=== PATIENT | male | born 1955 | race Caucasian/White ===

== ENCOUNTER 2017-04-02 07:05 | Day surgery (SDC) | payer BC ==
[~2017-04-02 07:05] MED LIST: ASPIRIN EC81 MG PO; CPAP; CYMBALTA60 M1 PO; CYMBALTA60 MG PO; DILTIAZEM ER180 M2 PO; FLOMAX0.4 MG PO; FLONASE ALLERG9.9 ML; FLUTICASONE PRO16 GM NS; HYDROCODON-ACE1 EAC8 PO; MULTIVITAMIN1 TAB PO; MULTIVITAMINS1 EAC6 PO; NORCO 5/325 TAB1 TAB PO; TAMSULOSIN HCL0.4 M1 PO; TOPROL XL50 M1 PO; [UNRECOGNIZED DRUG - OTHER] PO
[2017-04-02] MEDS ORDERED: HYDROCODON-ACE1 EA16 PO (07:46)
[2017-04-02 07:54] LABS: URINE BILIRUBIN NEGATIVE (NEG); URINE BLOOD LARGE (NEG); URINE GLUCOSE (UA) NEGATIVE (NEG); URINE KETONE NEGATIVE (NEG); URINE LEUKOCYTE ESTERASE POSITIVE (NEG); URINE NITRITE NEGATIVE (NEG); URINE PROTEIN MODERATE (NEG)
[2017-04-02 07:55] LABS: URINE APPEARANCE HAZY; URINE COLOR YELLOW
[2017-04-02 08:05] LABS: URINE RBC 200-250 /[HPF] (0-5); URINE WBC 0-3 /[HPF] (0-5)
[2017-04-02 08:06] LABS: URINE BACTERIA 1+; URINE EPITHELIAL CELLS 0-1 /[HPF] (0-10)
[2017-04-02 08:06] LABS: INR 0.9 INR (0.9-1.1); PROTHROMBIN TIME 10.6 SECONDS (9.0-13.6)
[2017-04-03] MEDS ORDERED: PERCOCET 5-3251 EACH PO (10:25)
[2017-04-03] MEDS ORDERED: LEVAQUIN500 M1 PO (10:41)
[2017-04-29] MEDS ORDERED: HYDROCODON-ACE1 EA16 PO (15:23)
== END 2017-04-03 11:05 ==
LOC: SRG 07:05 → SHSB 07:06 → ORW 09:24 → PACU 10:01 → CAR1 11:14
PROVIDERS: Urology
PROC: 0TBB8ZZ Excision of Bladder, Via Natural or Artificial Opening Endoscopic (ICD-10-PCS; principal; 2017-04-02)
DX: C67.4 Malignant neoplasm of posterior wall of bladder (principal); N32.89 Other specified disorders of bladder; I10 Essential (primary) hypertension; R42 Dizziness and giddiness; G89.4 Chronic pain syndrome; G47.30 Sleep apnea, unspecified; K21.9 Gastro-esophageal reflux disease without esophagitis; Z79.82 Long term (current) use of aspirin; Z79.899 Other long term (current) drug therapy; Z91.018 Allergy to other foods; Z91.040 Latex allergy status; Z91.048 Other nonmedicinal substance allergy status; Z87.891 Personal history of nicotine dependence; Z90.89 Acquired absence of other organs; Z98.890 Other specified postprocedural states
CPT/HCPCS: J1956; J3010

== ENCOUNTER 2017-05-01 07:20 | Day surgery (SDC) | payer BC ==
[~2017-05-01 07:20] MED LIST changes: +HYDROCODON-ACE1 EA16 PO; +LEVAQUIN500 M1 PO; +PERCOCET 5-3251 EACH PO
== END 2017-05-01 13:10 ==
LOC: SRG 07:20 → SHSB 07:23 → ORW 12:00 → SHSB 12:38
PROC: 05H633Z Insertion of Infusion Device into Left Subclavian Vein, Percutaneous Approach (ICD-10-PCS; principal; 2017-05-01)
PROC: B517ZZA Fluoroscopy of Left Subclavian Vein, Guidance (ICD-10-PCS; 2017-05-01)
DX: C67.9 Malignant neoplasm of bladder, unspecified (principal); I48.91 Unspecified atrial fibrillation; F41.9 Anxiety disorder, unspecified; F32.9 Major depressive disorder, single episode, unspecified; G47.30 Sleep apnea, unspecified; K21.9 Gastro-esophageal reflux disease without esophagitis; Z79.51 Long term (current) use of inhaled steroids; Z79.82 Long term (current) use of aspirin; Z79.899 Other long term (current) drug therapy; Z91.040 Latex allergy status; Z91.048 Other nonmedicinal substance allergy status; Z87.891 Personal history of nicotine dependence; Z90.79 Acquired absence of other genital organ(s); Z90.89 Acquired absence of other organs; Z98.1 Arthrodesis status; Z98.890 Other specified postprocedural states; Z99.89 Dependence on other enabling machines and devices
CPT/HCPCS: C1788; J0690; J1644; J7050